=== PATIENT | female | born 1965 | race Two or more races ===

== ENCOUNTER 2025-08-14 15:41 | Emergency (ER) | payer BC ==
[~2025-08-14] VITALS: Ht 175.3 cm; Wt 79.4 kg
[2025-08-14] MEDS ORDERED: MELOXICAM15 MG (16:19)
[2025-08-14] MEDS ORDERED: DEXAMETHASONE SODIUM PHOSP/PF 10 MG/ML VIAL IJ ONE (16:45)
[2025-08-14] MEDS ORDERED: DEXAMETHASONE SODIUM PHOSPHATE 4 MG/ML VIAL ONE (19:32)
[2025-08-14 20:33] LABS: BASO % 0.3 % (0.1-1.2); EOS # 0.10 (0.04-0.54); EOS % 0.8 % (0.7-7.0); LYMPH # 2.62 (1.18-3.74); LYMPH % 22.1 % (19.3-53.1); MEAN PLATELET VOLUME 11.30 fl (9.4-12.4); MONO # 0.74 (0.24-0.82); MONO % 6.2 % (4.7-12.5); NEUT # 8.34 (1.56-6.13); NEUT % 70.3 % (34.0-71.1); RED CELL DISTRIBUTION WIDTH 15.4 % (11.6-14.4)
[2025-08-14] MEDS ORDERED: AZITHROMYCIN500 MG PO (21:03)
[2025-08-14] MEDS ORDERED: PEPCID AC20 MG PO (21:03)
[2025-08-14] MEDS ORDERED: MEDROLPACK PO (21:03)
[2025-08-14 21:10] LABS: ALT/SGPT 22.0 U/L (12-78); AST/SGOT 17.0 U/L (15-37); BILIRUBIN TOTAL 0.29 mg/dL (0.3-1.2); BUN CREA RATIO 20.0 (7.0-25.0); CREATININE SERUM 0.75 mg/dL (0.55-1.02); GFR 79.37; GLOBULINA 3.3 G/DL (2.4-3.5); GLUCOSE FASTING 94.0 mg/dL (65-100); OSMOLALITY SERUM 286.0 MOSM/KG (275-295)
== END 2025-08-14 23:08 | disposition home or self-care (01) ==
LOC: ER 15:41
PROVIDERS: General Practice
DX: R22.1 Localized swelling, mass and lump, neck (principal); R13.19 Other dysphagia